=== PATIENT | male | born 1950 | race African-American/Black ===

== ENCOUNTER 2019-03-04 13:58 | Emergency (ER) | payer MEDICARE ==
[2019-03-04] MEDS ORDERED: Adacel (T-DAP) 0.5 ML SYRINGE ONE (14:38)
[2019-03-04] MEDS ORDERED: Lidocaine 1% w/Epinephrine 1:100K 20 ML VIAL ONE (14:38)
[2019-03-04] MEDS ORDERED: Bupivacaine 0.5% 10 ML VIAL ONE (14:38)
--- NOTE | 2019-03-04 14:47 | RAD ---
Radiograph left hand 3 views: HISTORY: Acute traumatic injury with laceration FINDINGS: No fracture or dislocation. Dressings at palm of hand. IMPRESSION: 1. No fracture 2. Laceration of soft tissues at the volar aspect of hand.
== END 2019-03-04 17:03 | disposition home or self-care (01) ==
LOC: ERS 13:58
DX: S61.412A Laceration without foreign body of left hand, initial encounter (principal); E78.5 Hyperlipidemia, unspecified; W01.0XXA Fall on same level from slipping, tripping and stumbling without subsequent striking against object, initial encounter; Z23 Encounter for immunization
CPT/HCPCS: 12042; 90471; 90715; J2001; J3490